=== PATIENT | male | born 1960 | race African-American/Black ===

== ENCOUNTER 2018-03-25 21:55 | Emergency (ER) | payer SELFPAY ==
[2018-03-25 22:03] VITALS: BMI 32.8
--- NOTE | 2018-03-25 22:50 | DR.GENAD ---
HPI - PCP Primary Care Physician: NFD - Complaint/Symptoms Chief Complaint Doctors Comments: He had chest pain onset at rest about 1.5 to hrs [employer] in the ED. This lasted for about 25 minutes. He was already c/p upon arrival here. It was just left of center and he couldn't characterise it - " just pain." He states that he was diaphoretic and short winded but had no nausea or vomitting. There was no radiation of the c/p. All s/s were resolved prior to coming into the hospital. Chief Complaint:: PT C/O CHEST PAIN POINTS TO CENTER OF CHEST PT ALSO C/O BEING SOB - Nurses notes reviewed Nurses Notes Review: Yes - Source History Provided: Patient, Significant Other - Mode of Arrival Mode of Arrival: Ambulatory - Timing Onset of Chief Complaint: 03/25/18 PMH - PMH Past Medical History: Yes Past Medical History: Coronary Artery Disease, Hypertension Past Surgical History: Yes Surgical History: Angioplasty/Stents - Family History History of Family Medical Conditions: No - Social History Type of Tobacco Use: Cigarettes Does any household member use tobacco: No Alcohol Use: None Do you use any recreational Drugs:: No Lives With: Family Lives Where: Home - infectious screening In the last 2 months have you had wt loss of >10#?: NO Have you had fever, night sweats or hemotysis?: No Have you traveled outside the country in the last 6 months?: No Isolation: Standard ROS - Review of Systems Constitutional: No Symptoms Reported Eyes: No Symptoms Reported ENTM: No Symptoms Reported Respiratoy: Short of Breath Cardiovascular: Chest Pain Gastrointestinal/Abdominal: No Symptoms Reported Genitourinary: No Symptoms Reported Neurological: No Symptoms Reported Musculoskeletal: No Symptoms Reported Integumentary: No Symptoms Reported Hematologic/Lymphatic: No Symptoms Reported Endocrine: No Symptoms Reported Psychiatric: No Symptoms Reported All Other Systems: Reviewed and Negative PE - Vital Signs Vitals: Temperature 97.9 F Pulse Rate 77 Respiratory Rate 22 Blood Pressure 128/75 O2 Sat by Pulse Oximetry 96 - General Limitations: No Limitations General Appearance: Alert, In No Apparent Distress - Head Head Exam: Normal Inspection - Eyes Eye exam: Normal Appearance - ENT ENT Exam: Normal Exam - Neck Neck Exam: Normal Inspection - Chest Chest Inspection: Normal Inspection - Respiratory Respiratory Exam: Normal Lung Sounds Bilat - Cardiovascular Cardiovascular Exam: Regular Rate, Normal Rhythm, Normal Heart Sounds, +S1, +S2 - Abdominal Exam Abdominal Exam: Normal Inspection, Normal Bowel Sounds, Soft - Extremities Extremities Exam: Normal Inspection - Back Back Exam: Normal Inspection - Neurologic Neurological Exam: Alert, Oriented X3 - Psychiatric Psychiatric Exam: Normal Affect, Normal Mood - Skin Skin Exam: Warm, Dry, Intact, Normal Color Course - Reevaluation 1st: Resolved 2nd: Resolved - Education/Counseling Education/Counseling: Patient, Family, Education, Counseling Educated On: Treatment, Diagnosis, Prognosis, Needs for Follow Up ROR - Labs Reviewed Result Diagrams: 03/25/18 22:55 03/25/18 22:55 Laboratory: WBC 5.1 X10^3/uL (3.6-10.0) 03/25/18 22:55 RBC 4.79 X10^6/uL (4.7-6.0) 03/25/18 22:55 Hgb 13.8 g/dL (13.5-18.0) 03/25/18 22:55 Hct 41.0 % (42.0-54.0) L 03/25/18 22:55 MCV 85.6 fL (80.0-100.0) 03/25/18 22:55 MCH 28.7 pg (27.0-34.0) 03/25/18 22:55 MCHC 33.6 g/dL (33.0-35.0) 03/25/18 22:55 RDW 14.8 % (11.6-16.5) 03/25/18 22:55 Plt Count 203 X10^3/uL (150.0-450.0) 03/25/18 22:55 MPV 8.1 fL (7.4-11.0) 03/25/18 22:55 Neut % (Auto) 39.1 % (42.0-75.0) L 03/25/18 22:55 Lymph % (Auto) 46.0 % (21.0-51.0) 03/25/18 22:55 Taylor % (Auto) 11.1 % (0.0-13.0) 03/25/18 22:55 Eos % (Auto) 3.1 % (0.9-2.9) H 03/25/18 22:55 Baso % (Auto) 0.7 % (0.2-1.0) 03/25/18 22:55 Neut # (Auto) 2.0 x10^3/uL (2.2-4.8) L 03/25/18 22:55 Lymph # (Auto) 2.4 X10^3/uL (1.3-2.9) 03/25/18 22:55 Taylor # (Auto) 0.6 x10^3/uL (0.3-0.8) 03/25/18 22:55 Eos # (Auto) 0.2 x10^3/uL (0.0-0.2) 03/25/18 22:55 Baso # (Auto) 0.0 X10^3/uL (0.0-0.1) 03/25/18 22:55 Absolute Nucleated RBC 0.0 /100WBC 03/25/18 22:55 INR Target Range - 03/25/18 22:55 INR 0.99 (0.8-1.3) 03/25/18 22:55 APTT 32.5 SECONDS (22.9-36.5) 03/25/18 22:55 PTT Comment - 03/25/18 22:55 Sodium 140 mmol/L (136-145) 03/25/18 22:55 Corrected Sodium 141 mmol/L (136-145) 03/25/18 22:55 Potassium 3.8 mmol/L (3.5-5.1) 03/25/18 22:55 Chloride 104 mmol/L (98-107) 03/25/18 22:55 Carbon Dioxide 29.0 mmol/L (21-32) 03/25/18 22:55 BUN 12 mg/dL (7-18) 03/25/18 22:55 Creatinine 1.01 mg/dL (0.70-1.30) 03/25/18 22:55 Est GFR (MDRD) Af Amer > 60 (>60) 03/25/18 22:55 Est GFR (MDRD) Non-Af > 60 (>60) 03/25/18 22:55 Glucose 126 mg/dL (65-99) H 03/25/18 22:55 Calcium 8.2 mg/dL (8.5-10.1) L 03/25/18 22:55 Corrected Calcium TNP 03/25/18 22:55 Total Bilirubin 0.40 mg/dL (0.2-1.0) 03/25/18 22:55 AST 15 Units/L (15-37) 03/25/18 22:55 ALT 24 Units/L (12-78) 03/25/18 22:55 Alkaline Phosphatase 100 Units/L (46-116) 03/25/18 22:55 Creatine Kinase 114 Units/L (39-308) 03/25/18 22:55 CK-MB (CK-2) < 1.0 ng/mL (0-4.0) 03/25/18 22:55 CK/CKMB % Calc 0.9 % (<4) 03/25/18 22:55 Troponin I < 0.02 ng/mL (0-1.5) 03/25/18 22:55 Total Protein 7.5 g/dL (6.4-8.2) 03/25/18 22:55 Albumin 3.4 g/dL (3.4-5.0) 03/25/18 22:55 Globulin 4.1 g/dL (2.5-4.5) 03/25/18 22:55 Albumin/Globulin Ratio 0.8 Ratio (1.1-2.1) L 03/25/18 22:55 H. pylori IgG Antibody Positive (NEGATIVE) A 03/25/18 22:55 - EKG Rate: 69 [place]: Normal Rhythm: NSR Block: None, 1, 2, 3, AVB, LBBB, RBBB, IVCD Hypertrophy: None ST: Old, Inf, Infarct - Diagnosis Discharge Problem: Chest pain, Helicobacter pylori (H. pylori) infection, CHF (congestive heart failure), NYHA class II - Discharge Plan Disposition: HOME, SELF-CARE Condition: Stable - Follow ups/Referrals Follow ups/Referrals: ,Misc [Primary Care Provider] - 3 days - Instructions Instructions: Nonspecific Chest Pain, [id number], Helicobacter Pylori Infection
--- NOTE | 2018-03-25 23:02 | RAD ---
Chest AP portable Indication: Chest pain Findings: There is no pneumothorax. Mild increased interstitial markings are noted. Heart size is pro minent. Monitoring leads obscure detail. Impression: Borderline edema. Correlate clinically for CHF. Reported By:
[2018-03-25 23:08] LABS: BASOPHILS % (AUTO) 0.7 % (0.2-1.0); EOSINOPHILS # (AUTO) 0.2 x10^3/uL (0.0-0.2); EOSINOPHILS % (AUTO) 3.1 % (0.9-2.9); HEMOGLOBIN 13.8 g/dL (13.5-18.0); LYMPHOCYTES # (AUTO) 2.4 X10^3/uL (1.3-2.9); MEAN CORPUSCULAR HEMOGLOBIN 28.7 pg (27.0-34.0); MEAN CORPUSCULAR HGB CONC 33.6 g/dL (33.0-35.0); MEAN CORPUSCULAR VOLUME 85.6 fL (80.0-100.0); MEAN PLATELET VOLUME 8.1 fL (7.4-11.0); MONOCYTES # (AUTO) 0.6 x10^3/uL (0.3-0.8); MONOCYTES % (AUTO) 11.1 % (0.0-13.0); NEUTROPHILS % (AUTO) 39.1 % (42.0-75.0); PLATELET COUNT 203 X10^3/uL (150.0-450.0); RED BLOOD COUNT 4.79 X10^6/uL (4.7-6.0); RED CELL DISTRIBUTION WIDTH 14.8 % (11.6-16.5); WHITE BLOOD COUNT 5.1 X10^3/uL (3.6-10.0)
[2018-03-25 23:21] LABS: BLOOD UREA NITROGEN 12 mg/dL (7-18); CALCIUM 8.2 mg/dL (8.5-10.1); CHLORIDE 104 mmol/L (98-107); COR NA(FOR HYPERGLY) 141 mmol/L (136-145); CREATININE 1.01 mg/dL (0.70-1.30); SODIUM 140 mmol/L (136-145); TROPONIN I < 0.02 ng/mL (0-1.5); eGFR BLACK RACES > 60 (>60); eGFR NON BLACK RACES > 60 (>60)
[2018-03-25 23:25] LABS: ALANINE AMINOTRANSFERASE 24 Units/L (12-78); ALBUMIN 3.4 g/dL (3.4-5.0); ALKALINE PHOSPHATASE 100 Units/L (46-116); ASPARTATE AMINO TRANSFERASE 15 Units/L (15-37); CKMB % 0.9 % (<4); CREATINE KINASE 114 Units/L (39-308); CREATINE KINASE MB < 1.0 ng/mL (0-4.0); TOTAL PROTEIN 7.5 g/dL (6.4-8.2)
[2018-03-25] MEDS ORDERED: LASIX PO ONE (23:26)
[2018-03-25] MEDS ORDERED: LASIX ONE (23:27)
[2018-03-25 23:52] VITALS: BP 137/85
== END 2018-03-25 23:51 | disposition home or self-care (01) ==
LOC: ER 22:07
DX: R07.89 Other chest pain (principal); I50.9 Heart failure, unspecified; B96.81 Helicobacter pylori [H. pylori] as the cause of diseases classified elsewhere; R73.9 Hyperglycemia, unspecified; R94.31 Abnormal electrocardiogram [ECG] [EKG]
CPT/HCPCS: 36415; 71045; 80053; 82550; 82553; 83880; 84484; 85025; 85610; 85730; 86677; 93005; 93010; 99283